=== PATIENT | male | born 1990 | race Asian ===

== ENCOUNTER 2024-02-14 10:41 | Emergency (ER) | payer SELFPAY ==
[~2024-02-14] VITALS: Ht 185.4 cm; Wt 105.0 kg
[2024-02-14 10:50] VITALS: TEMP 98.6; O2SAT 99
[2024-02-14] MEDS: ACETAMINOPHEN WITH CODEINE 300/30MG TABLET PO NR (11:30)
[2024-02-14 12:03] VITALS: BP 153/93; PULSE 103; RESP 16
[2024-02-14] MEDS ORDERED: PRED5DRO22 LEFTEYE (13:13)
[2024-02-14] MEDS ORDERED: NEO/5DRO3 EACHEYE (13:13)
[2024-02-14] MEDS ORDERED: CIPR2.5D20 LEFTEYE (13:13)
== END 2024-02-14 13:44 | disposition home or self-care (01) ==
LOC: ER 10:50
DX: H16.202 Unspecified keratoconjunctivitis, left eye (principal)
CPT/HCPCS: 99283